=== PATIENT | male | born 1950 | race Caucasian/White ===

== ENCOUNTER 2024-09-29 06:11 | Day surgery (SDC) | payer MEDICARE, OTHER, SELFPAY ==
[2024-09-12 11:01] LABS: Hemoglobin 15.3 g/dL (13.0-18.0); Mean Corp Hgb Conc. 33.3 g/dL (33.0-37.0); Mean Corpuscular Hgb 29.4 pg (27.0-31.0); Mean Corpuscular Volume 88.3 fL (80.0-94.0); Mean Platelet Volume 9.8 fL (7.4-10.4); Platelet Count 283 10^3/uL (130-400); Red Blood Cell Count 5.21 10^6/uL (4.70-6.10); Red Cell Dist. Width 13.7 % (11.5-14.5); White Blood Cell Count 9.6 10^3/uL (4.8-10.8)
[2024-09-12 11:32] LABS: Glycohemoglobin (HgbA1c) 5.7 % (4.0-5.6)
[2024-09-12 11:45] LABS: ALT (SGPT) 25 U/L (0-50); AST (SGOT) 23 U/L (17-59); Albumin 4.3 g/dl (3.5-5.0); Alkaline Phosphatase 64 U/L (38-126); Blood Urea Nitrogen 17 mg/dl (9-20); Calcium 9.4 mg/dl (8.4-10.2); Carbon Dioxide 27 mmol/L (22-30); Chloride 101 mmol/L (98-107); Glucose 91 mg/dl (70-99); Potassium 5.3 mmol/L (3.5-5.1); Sodium 137 mmol/L (135-145); Total Bilirubin 0.2 mg/dl (0.2-1.3); Total Protein 7.1 g/dl (6.3-8.2); eGFR > 60.00
[2024-09-12 13:23] VITALS: BMI 35.2
--- NOTE | 2024-09-15 11:56 | VNURNOTE ---
[facility] Liaison called patient to discuss post-op plans and [facility] services. No answer, left message.
--- NOTE | 2024-09-15 12:11 | VNURNOTE ---
Patient is scheduled for an elective L TKA on 09/29/24- he is a same day patient with Dr Cruz. Spoke with patient prior to surgery. Introduced role of [facility] Liaison. Patient reports that he lives with his in a MULTI story home.
There are 1 step to enter and a flight of steps to the second floor.
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 He has a cane and rolling walker.
PCP is Dr Leti GRIFFITH at [facility]
Discussed [facility] joint protocol and post surgical plans.
Reviewed that he will have [facility] services initially and will then start outpatient PT.
Patient selects [facility] for his home care needs and will go to either [facility] or another outpt PT for outpatient PT. Outpt PT start date TBD.
Patient is in agreement with plan and states that his will be home with him. Advised to bring RW with him day of surgery. Referral placed in [facility].
Plan: [facility] per [facility] joint protocol 09/29 then outpt PT TBD
[2024-09-23 08:54] VITALS: BMI 35.2
[2024-09-29] VITALS (7 sets, daily range): BP systolic 102–161; BP diastolic 63–107; BMI 35.2
[2024-09-29] MEDS: NORMOSOL-R/PLASMALYTE-A 1000 IV (07:10)
[2024-09-29] MEDS: CELEBREX 200 MG PO (07:12)
[2024-09-29] MEDS: TYLENOL 650 MG PO (07:12)
--- NOTE | 2024-09-29 07:19 | W.DS.TRANS ---
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
-
Discharge Instructions:
Discharge Diagnosis/Procedures L TKA 09/29/24
Diet Diabetic, Carb Controlled
Activity With Walker
Driving Restrictions No driving
Bathing Restrictions OK to Shower
Other Services PT
Instructions:
Stand-Alone Forms: SDS Total Hip and Knee D/C
Changes to Home Medications: Yes
Discharge Medications:
DC Medications w/original date entered in [facility]
Folate 1 dose PO DAILY 09/23/24
Ginko Biloba 1 dose PO DAILY 09/23/24
Vitamin C Complex 1 dose PO DAILY 09/23/24
biotin 1 mg tablet 1 mg PO DAILY 09/23/24
cholecalciferol (vitamin D3) 25 mcg (1,000 unit) capsule (Vitamin D3) 25 mcg PO DAILY 09/23/24
coQ10 (ubiquinol) 100 mg capsule 200 mg PO DAILY 09/23/24
famotidine 20 mg tablet 20 mg PO HS 09/23/24
fluticasone propionate 50 mcg/actuation nasal spray,suspension 1 spray intranasal DAILY PRN congestion 09/23/24
glucosamine sulf dipot chlr,msm,chond 550 mg-C 30 mg-yesy 1 mg capsule (Glucosamine Chondroitin) 1 cap PO DAILY 09/23/24
hyalur ac-chond sul-colg II-AA 40 mg-80 mg-400 mg capsule 1 cap PO DAILY 09/23/24
lisinopril 20 mg tablet 20 mg PO BID 09/23/24
metoprolol tartrate 25 mg tablet 12.5 mg PO DAILY 09/23/24
multivitamin 1 tab PO DAILY 09/23/24
nifedipine 30 mg tablet,extended release 15 mg PO HS 09/23/24
omega-3 fatty acids 1,000 mg PO DAILY 09/23/24
acetaminophen 325 mg tablet (Tylenol) 650 mg (2 x 325 mg) PO QID #1 tab 09/29/24
aspirin 325 mg tablet 325 mg PO DAILY blood clot prevention #1 tab 09/29/24
celecoxib 100 mg capsule 100 mg PO BID Anti-inflammatory #14 caps 09/29/24
dexamethasone 4 mg tablet 4 mg PO BID inflammation #6 tabs 09/29/24
docusate sodium 100 mg capsule (Colace) 100 mg PO BID stool softner #1 cap 09/29/24
magnesium hydroxide 400 mg/5 mL oral suspension (Milk of Magnesia) 30 ml PO HS PRN Constipation #1 mL 09/29/24
mupirocin 2 % topical ointment 1 applic topical DIRECTED 09/29/24
ondansetron 4 mg disintegrating tablet 4 mg PO Q6H PRN n/v #20 tabs 09/29/24
oxycodone 5 mg tablet 5 mg PO Q6H PRN 1 tab moderate pain, 2 tabs severe pain #30 tabs 09/29/24
sennosides 8.6 mg tablet (Senokot) 17.2 mg (2 x 8.6 mg) PO BID laxative #2 tabs 09/29/24
Home Medication Changes
acetaminophen 325 mg tablet (Tylenol) 650 mg (2 x 325 mg) PO QID #1 tab 09/29/24
aspirin 325 mg tablet 325 mg PO DAILY blood clot prevention #1 tab 09/29/24
celecoxib 100 mg capsule 100 mg PO BID Anti-inflammatory #14 caps 09/29/24
dexamethasone 4 mg tablet 4 mg PO BID inflammation #6 tabs 09/29/24
docusate sodium 100 mg capsule (Colace) 100 mg PO BID stool softner #1 cap 09/29/24
magnesium hydroxide 400 mg/5 mL oral suspension (Milk of Magnesia) 30 ml PO HS PRN Constipation #1 mL 09/29/24
mupirocin 2 % topical ointment 1 applic topical DIRECTED 09/29/24
ondansetron 4 mg disintegrating tablet 4 mg PO Q6H PRN n/v #20 tabs 09/29/24
oxycodone 5 mg tablet 5 mg PO Q6H PRN 1 tab moderate pain, 2 tabs severe pain #30 tabs 09/29/24
sennosides 8.6 mg tablet (Senokot) 17.2 mg (2 x 8.6 mg) PO BID laxative #2 tabs 09/29/24
Pending Results: No
[2024-09-29] MEDS: ANCEF 5 IV (11:57)
== END 2024-09-29 12:33 | disposition home or self-care (01) ==
LOC: SDS 06:11
PROVIDERS: ATTENDING PHYSICIAN Specialist; FAMILY PHYSICIAN Family Medicine; REFERRING PHYSICIAN Internal Medicine Cardiovascular Disease
PROC: 0SRD0J9 Replacement of Left Knee Joint with Synthetic Substitute, Cemented, Open Approach (ICD-10-PCS; 2024-09-29)
DX: M17.12 Unilateral primary osteoarthritis, left knee (principal); I10 Essential (primary) hypertension; G47.33 Obstructive sleep apnea (adult) (pediatric); E66.9 Obesity, unspecified; Z68.33 Body mass index [BMI] 33.0-33.9, adult; M10.9 Gout, unspecified; Z88.0 Allergy status to penicillin; Z95.0 Presence of cardiac pacemaker
CPT/HCPCS: 27447; 36415; 73560; 80053; 83036; 85027; 87070; 97162; C1713; C1776

== ENCOUNTER → 2025-02-16 09:44 | Outpatient (REF) | payer OTHER, SELFPAY | LOC: RAD 09:44 | PROVIDERS: ATTENDING PHYSICIAN Physician Assistant Surgical; FAMILY PHYSICIAN Nurse Practitioner Family | DX: S80.02XD Contusion of left knee, subsequent encounter (principal); Z96.652 Presence of left artificial knee joint; M79.89 Other specified soft tissue disorders | CPT/HCPCS: 93971 ==

== ENCOUNTER → 2025-04-17 09:23 | Outpatient (REF) | payer OTHER, SELFPAY | LOC: RAD 09:23 | PROVIDERS: ATTENDING PHYSICIAN Radiology Diagnostic Radiology; FAMILY PHYSICIAN Nurse Practitioner Family | DX: Z01.818 Encounter for other preprocedural examination (principal) | CPT/HCPCS: 71046 ==

== ENCOUNTER → 2025-05-29 13:35 | Outpatient (REF) | payer OTHER, MEDICARE, SELFPAY | LOC: MRI 13:35 | PROVIDERS: ATTENDING PHYSICIAN Physician Assistant Surgical; FAMILY PHYSICIAN Nurse Practitioner Family | DX: M54.16 Radiculopathy, lumbar region (principal) | CPT/HCPCS: 72141; 72148 ==